=== PATIENT | male | born 1960 | race American Indian/Alaskan Native ===

== ENCOUNTER 2019-03-01 09:14 | Emergency (ER) | payer OTHER ==
[~2019-03-01] VITALS: Ht 175.3 cm; Wt 83.5 kg
[~2019-03-01 09:14] MED LIST: HYDACE5 PO; LISI5 PO; NIAC500 PO; OXYACE5T PO
[2019-03-01 10:30] LABS: BASOPHILS ABSOLUTE AUTO 0.07 K/mm3 (0.00-0.23); BASOPHILS PERCENT AUTO 1 % (0-2); EOSINOPHILS ABSOLUTE AUTO 0.46 K/mm3 (0.00-0.68); EOSINOPHILS PERCENT AUTO 4 % (0-6); Hematocrit 45.4 % (37.0-53.0); IMMATURE GRAN ABSOLUTE AUTO 0.03 K/mm3 (0.00-0.10); IMMATURE GRAN PERCENT AUTO 0 % (0-1); LYMPHOCYTES ABSOLUTE AUTO 2.66 K/mm3 (0.84-5.20); LYMPHOCYTES PERCENT AUTO 25 % (21-46); MONOCYTES ABSOLUTE AUTO 0.88 K/mm3 (0.16-1.47); MONOCYTES PERCENT AUTO 8 % (4-13); Mean Corpuscular HGB 31.3 pg (26.0-34.0); Mean Corpuscular Volume 95 fL (80-100); NEUTROPHILS ABSOLUTE AUTO 6.68 K/mm3 (1.96-9.15); NEUTROPHILS PERCENT AUTO 62 % (41-73); Platelet Count 185 K/mm3 (150-400); RDW Coefficient Variation 14.3 % (11.7-14.2); RDW Standard Deviation 50.4 fL (35.1-46.3); Red Blood Cell Count 4.79 M/mm3 (4.30-5.90); White Blood Cell Count 10.78 K/mm3 (4.00-11.30)
[2019-03-01 10:42] LABS: Alanine Aminotransfer (ALT/SGP 20 U/L (12-78); Albumin, Blood 3.3 g/dL (3.4-5.0); Alk Phos 58 U/L (50-136); Anion Gap 4 mmol/L (6-16); Aspartate Aminotrans (AST/SGOT 13 U/L (12-37); Bilirubin, Total 0.2 mg/dL (0.1-1.0); Blood Urea Nitrogen 19 mg/dL (8-24); Bun/Creatinine Ratio 24.5 (12.0-20.0); CO2, Blood 29 mmol/L (21-32); Calcium, Blood 8.1 mg/dL (8.5-10.1); Chloride, Blood 110 mmol/L (98-108); Creatinine, Blood 0.78 mg/dL (0.60-1.20); Globulin, Blood 3.2 g/dL (2.2-4.0); Glomerular Filtration Rate >60 (60-); Glucose, Blood 103 mg/dL (70-99); Sodium, Blood 143 mmol/L (136-145); Total Protein, Blood 6.5 g/dL (6.4-8.2)
[2019-03-01 12:42] LABS: Source, Urine Clean Catch
[2019-03-01 12:48] LABS: Appearance, Urine Clear (Clear); Bilirubin, Urine Neg (Neg); Blood, Urine Neg (Neg); Color, Urine Yellow (P-Yellow); Glucose Qualitative, Urine Neg (Neg); Ketones, Urine Neg (Neg); Leukocyte Esterase, Urine Neg (Neg); Nitrite, Urine Neg (Neg); Protein, Urine Neg (Neg); Urobilinogen, Urine NORM (Normal)
[2019-03-01] MEDS ORDERED: Norco 10-325 T1 EACH PO (13:50)
[2019-03-01] MEDS ORDERED: Amlodipine Besy10 MG PO (13:50)
[2019-03-28] MEDS ORDERED: Hydrocodone-Ap1 EA20 PO (15:08)
== END 2019-03-01 14:26 | disposition home or self-care (01) ==
LOC: ER 09:14
PROVIDERS: Emergency Medicine
DX: K40.90 Unilateral inguinal hernia, without obstruction or gangrene, not specified as recurrent (principal); I16.0 Hypertensive urgency; Z91.14 Patient's other noncompliance with medication regimen; F17.200 Nicotine dependence, unspecified, uncomplicated; Z88.0 Allergy status to penicillin
CPT/HCPCS: 76857; 80053; 81003; 85025; 96361; 96374; 96375; 99284-25; J1170; J2405; J3010; J7030

== ENCOUNTER 2019-03-31 07:18 | Day surgery (SDC) | payer OTHER ==
[~2019-03-31] VITALS: Ht 175.3 cm; Wt 87.5 kg
[~2019-03-31 07:18] MED LIST changes: +Amlodipine Besy10 MG PO; +Hydrocodone-Ap1 EA20 PO; +Norco 10-325 T1 EACH PO
--- NOTE | 2019-03-31 07:39 | NUR ---
History, Chart, Medications and Allergies reviewed before start of procedure. Patient States Post-Procedure ride home has been arranged. Patient confirms NPO status and agrees with scheduled surgery. EXP WHEEZE T/O LUNGS. NO COUGH. PT HAS ONE HEARING AIDE, REMOVED AND PLACED IN HIS BELONGS BAG.
--- NOTE | 2019-03-31 12:36 | NUR ---
PT MEDICATED WITH IV LABETALOL PER ANESTHESIA ORDERS B/P REMAINS ELEVATED AFTER MEDICATED FOR PAIN AND PAIN AT TOLERABLE LEVEL PER PATIENT STATEMENT. SPOKE WITH DR. MANSFIELD REGARDING PATIENT STATUS. HE INSTRUCTED THIS RN TO ADMINISTOR 10 MG LABETALOL - DONE PER ORDERS.
--- NOTE | 2019-03-31 12:47 | NUR ---
PT CHANGED STATUS TO SDS BUT REMAINS IN PACU ROOM DUE TO SPACE AVAILABLE. PT RESTING ON STRETCHER WITH EYES CLOSED AT THIS TIME. DEEP EVEN BREATHING. VSS. PT STATES "I'M GOOD" WHEN ASKED IF HAVING PAIN.
--- NOTE | 2019-03-31 14:16 | NUR ---
PAIN UNCHANGED AFTER PAIN MEDICATIONS. Ambulatory in Day Surgery, VOIDED WITHOUT DIFFICULTY Discharge instructions reviewed with patient. Patient verbalizes understanding. Copy given to patient to take home. Dressing to procedure site clean, dry, intact with no visible drainage, swelling, erythema or bruising noted. Patient States Post-Procedure ride home has been arranged. Discharged via wheelchair to private car for ride home.
== END 2019-03-31 23:21 | disposition home or self-care (01) ==
LOC: ORSCMMR 07:18 → ORD 08:30 → ORSCMMR 23:21
PROVIDERS: Surgery
PROC: 8E0W4CZ Robotic Assisted Procedure of Trunk Region, Percutaneous Endoscopic Approach (ICD-10-PCS; principal; 2019-03-31 08:30)
PROC: 0YU64JZ Supplement Left Inguinal Region with Synthetic Substitute, Percutaneous Endoscopic Approach (ICD-10-PCS; principal; 2019-03-31 08:30)
DX: K40.30 Unilateral inguinal hernia, with obstruction, without gangrene, not specified as recurrent (principal); I10 Essential (primary) hypertension; J44.9 Chronic obstructive pulmonary disease, unspecified; F17.210 Nicotine dependence, cigarettes, uncomplicated; Z79.899 Other long term (current) drug therapy
CPT/HCPCS: 49650; S2900; A9270-GY; C1713; J0690; J1100; J1885; J2270; J2370; J2405; J2704; J3010; J7120